=== PATIENT | male | born 1960 ===

== ENCOUNTER 2017-10-25 08:35 | Emergency (ER) | payer SELFPAY ==
[2017-10-25 08:54] VITALS: TEMP 97.8; O2SAT 98
[2017-10-25 09:21] VITALS: BMI 27.9
--- NOTE | 2017-10-25 09:39 | ED PDOC ---
Arrival/HPI - General Chief Complaint: Back Pain Time Seen by Provider: 10/25/17 09:10 Historian: Patient - History of Present Illness Narrative History of Present Illness (Text): 10/25/17 09:36 57yr old male presents today with cough and low back pain. pt states he has been having low back pain x 3 days and cough and cold symptoms x 1 day. pt states yesterday he started amoxicillin and cold and cough medication. pt states back pain started 3 days ago. pt states he was just sitting when the pain started and the pain is localized to both sides of the low back. pt states pain is worse with ambulation and when he moves. pt denies urinary symptoms. denies fever/chills. denies abdominal pain. pt denies cp or sob. pt c/o nasal congestion. pt denies numbness, weakness, tingling in the extremities. no other complaints. Time/Duration: Other (3 days of back pain) Symptom Onset: Gradual Symptom Course: Worsening Severity Level: 10 Activities at Onset: Rest Past Medical History - Provider Review Nursing Documentation Reviewed: Yes - Travel History Have you recently traveled outside [place] w/in the past 3 mons?: No - Infectious Disease Hx of Infectious Diseases: None - Tetanus Immunization Tetanus Immunization: Unknown - Psychiatric Hx Substance Use: No - Surgical History Other/Comment: hernia Family/Social History - Physician Review Nursing Documentation Reviewed: Yes Family/Social History: Unknown Family HX Smoking Status: Never Smoked Hx Alcohol Use: No Hx Substance Use: No Allergies/Home Meds Allergies/Adverse Reactions: Allergies No Known Allergies Allergy (Verified 10/25/17 09:22) Review of Systems - Review of Systems Constitutional: absent: Fatigue, Fevers ENT: Sinus Congestion. absent: Sore Throat Respiratory: Cough. absent: SOB Cardiovascular: absent: Chest Pain, Palpitations Gastrointestinal: absent: Abdominal Pain, Constipation, Diarrhea, Nausea, Vomiting Genitourinary Male: absent: Dysuria, Frequency, Hematuria Musculoskeletal: Back Pain. absent: Arthralgias, Neck Pain Neurological: absent: Headache, Dizziness Psychiatric: absent: Anxiety, Depression, Suicidal Ideation Physical Exam Vital Signs Reviewed: Yes Vital Signs Temp Pulse Resp BP Pulse Ox 10/25/17 11:45 68 18 126/69 98 10/25/17 10:57 70 18 128/76 98 10/25/17 08:52 97.8 F 74 17 126/88 98 Temperature: Afebrile Blood Pressure: Normal Pulse: Regular Respiratory Rate: Normal Appearance: Positive for: Well-Appearing, Non-Toxic, Comfortable Pain Distress: None Mental Status: Positive for: Alert and Oriented X 3 - Systems Exam Head: Present: Atraumatic Mouth: Present: Moist Mucous Membranes Neck: Present: Normal Range of Motion Respiratory/Chest: Present: Clear to Auscultation, Good Air Exchange. No: Respiratory Distress, Accessory Muscle Use Cardiovascular: Present: Regular Rate and Rhythm, Normal S1, S2. No: Murmurs Abdomen: No: Tenderness, Rebound, Guarding Back: Present: Normal Inspection, Paraspinal Tenderness (+ bilateral paraspinal tenderness). No: CVA Tenderness, Midline Tenderness Upper Extremity: Present: Normal Inspection, Normal ROM Lower Extremity: Present: Normal Inspection, Normal ROM. No: CALF TENDERNESS, Swelling Neurological: Present: GCS=15, Speech Normal Skin: Present: Warm, Dry, Normal Color. No: Rashes Psychiatric: Present: Alert, Oriented x 3 Medical Decision Making ED Course and Treatment: 10/25/17 09:41 57yr old male with cough,uri symptoms and back pain. cbc wnl cmp glucose 233; NOt fasting lipase wnl ua: wnl cxr; wnl ls spine; no fracture as read by the radiologist pt reassessment after toradol and flexeril: pt feeling better after medications. ambulating with steady gait. no distress. pt was seen and evaluated by dr. chavez. all results discussed with patient and Using video patient care nursing assistant cluster bore operator: Tuan [id number] I've advised the patient of his elevated blood sugar level and need for a fasting blood sugar level as well as a hemoglobin A1c. I've advised the patient had elevated blood pressure and need for follow-up with the primary care physician for both the blood sugar and elevated blood pressure. I advised me to return if symptoms worsen persist or if new concerning symptoms develop Patient verbalizes understanding of discharge instructions and need for immediate followup. all aspects of this case were discussed the attending of record. impression; back pain, elevated blood sugar. Motrin every 6 hours as needed for pain Flexeril one tablet every 8 hours as needed for muscle spasms: May cause drowsiness Follow up with the primary care physician regarding your elevated blood pressure and elevated blood sugar levels. Followup with the orthopedist/back specialist within the next 2 days Followup with primary care physician within the next 2 days Return if symptoms worsen persist or if new symptoms develop Reassessment Condition: Re-examined, Improved - Lab Interpretations Lab Results: 10/25/17 10:00 10/25/17 10:00 Lab Results 10/25/17 10:00: WBC 7.7, RBC 5.00, Hgb 15.1, Hct 43.8, MCV 87.6, MCH 30.2, MCHC 34.5, RDW 12.8, Plt Count 290, MPV 9.5, Gran % 54.0, Lymph % (Auto) 34.2, Blount % (Auto) 8.4 H, Eos % (Auto) 3.0, Baso % (Auto) 0.4, Gran # 4.14, Lymph # (Auto ) 2.6, Blount # (Auto) 0.6, Eos # (Auto) 0.2, Baso # (Auto) 0.03 10/25/17 10:00: Sodium 140, Potassium 4.6, Chloride 104, Carbon Dioxide 25, Anion Gap 16, BUN 21, Creatinine 0.9, Est GFR ( Amer) > 60, Est GFR (Non- Af Amer) > 60, Random Glucose 233 H, Calcium 9.8, Total Bilirubin 0.3, AST 33, ALT 37, Alkaline Phosphatase 100, Total Protein 8.0, Albumin 4.5, Globulin 3.5, Albumin/Globulin Ratio 1.3, Lipase 64 10/25/17 10:00: Urine Color Yellow, Urine Appearance Clear, Urine pH 6.5, Ur Specific [place] 1.020, Urine Protein Trace H, Urine Glucose (UA) >=1000, Urine Ketones Negative, Urine Blood Negative, Urine Nitrate Negative, Urine Bilirubin Negative, Urine Urobilinogen 0.2, Ur Leukocyte Esterase Negative, Urine RBC Negative, Urine WBC 0 - 2, Ur Epithelial Cells 0 - 2, Urine Bacteria Small - RAD Interpretation Radiology Orders: 10/25/17 09:31 CHEST TWO VIEWS (PA/LAT) [RAD] Stat LS SPINE WITH OBL > 18 YRS OLD [RAD] Stat - Medication Orders Current Medication Orders: Discontinued Medications Cyclobenzaprine HCl (Flexeril) 10 mg PO STAT STA Stop: 10/25/17 09:31 Last Admin: 10/25/17 09:48 Dose: 10 mg Ketorolac Tromethamine (Toradol) 30 mg IVP STAT STA Stop: 10/25/17 09:31 Last Admin: 10/25/17 09:48 Dose: 30 mg MAR Pain Assessment Document 10/25/17 09:48 SF (Rec: 10/25/17 09:49 SF [place] [id number]) Pain Reassessment Is this a pain reassessment? Yes Sleep Is patient sleeping during reassessment? No Presence of Pain Presence of Pain Yes Pain Scale Used Pain Scale Used Numeric Location Left, Right or Bilateral Bilateral Upper or Lower Lower Pain Location Body Site Back Description Description Constant IVP Administration Document 10/25/17 09:48 SF (Rec: 10/25/17 09:49 [place] [id number]) Charges for Administration # of IVP Administrations 1 Disposition/Present on Arrival - Present on Arrival Any Indicators Present on Arrival: No History of DVT/PE: No History of Uncontrolled Diabetes: No Urinary Catheter: No History of Decub. Ulcer: No History Surgical Site Infection Following: None - Disposition Have Diagnosis and Disposition been Completed?: Yes Diagnosis: Back pain, Elevated blood sugar level Disposition: HOME/ ROUTINE Disposition Time: 12:30 Patient Plan: Discharge Condition: GOOD Discharge Instructions (ExitCare): Low Back Pain in Adults Print Language: BRAZILIAN Additional Instructions: Motrin every 6 hours as needed for pain Flexeril one tablet every 8 hours as needed for muscle spasms: May cause drowsiness Follow up with the primary care physician regarding your elevated blood pressure and elevated blood sugar levels. Followup with the orthopedist/back specialist within the next 2 days Followup with primary care physician within the next 2 days Return if symptoms worsen persist or if new symptoms develop Prescriptions: Cyclobenzaprine [Cyclobenzaprine HCl] 10 mg PO Q8 #10 tab Ibuprofen [Motrin] 600 mg PO Q6H PRN #20 tab PRN Reason: pain/fever reduction Referrals: Zev Ogden MD [Staff Provider] - Follow up with primary Faustino Olivarez MD [Staff Provider] - Follow up with primary [facility] [place] [Outside] - Follow up with primary [facility] [Outside] - Follow up with primary Forms: WORK NOTE, [employer] (Guinean), [employer] ([place])
[2017-10-25 10:13] LABS: BASO # 0.03 K/mm3 (0.0-2.0); BASO % 0.4 % (0.0-3.0); EOS # 0.2 (0.0-0.7); GRAN # 4.14 (1.4-6.5); HEMOGLOBIN 15.1 g/dL (14.0-18.0); LYMPH # 2.6 (1.2-3.4); LYMPH % 34.2 % (22.0-35.0); MEAN CELL VOLUME 87.6 fl (80.0-105.0); MEAN CORPUSCULAR HEMOGLOBIN 30.2 pg (25.0-35.0); MEAN CORPUSCULAR HGB CONC 34.5 g/dl (31.0-37.0); MEAN PLATELET VOLUME 9.5 fl (7.0-11.0); MONO # 0.6 (0.1-0.6); MONO % 8.4 % (1.0-6.0); RED CELL DISTRIBUTION WIDTH 12.8 % (11.5-14.5); WHITE BLOOD COUNT 7.7 10^3/ul (4.5-11.0)
[2017-10-25 10:14] LABS: PH,URINE 6.5 (4.7-8.0); URINE BILIRUBIN NEGATIVE (NEGATIVE); URINE BLOOD NEGATIVE (NEGATIVE); URINE GLUCOSE (UA) >=1000 mg/dL (NEGATIVE); URINE LEUKOCYTE ESTERASE NEGATIVE Leu/uL (NEGATIVE); URINE PROTEIN TRACE mg/dL (<30 mg/dL); URINE UROBILINOGEN 0.2 E.U./dL (<1 E.U./dL)
[2017-10-25 10:23] LABS: URINE APPEARANCE CLEAR (CLEAR); URINE COLOR YELLOW (YELLOW)
[2017-10-25 10:25] LABS: ALB/GLOB RATIO 1.3 (1.1-1.8); ALBUMIN 4.5 g/dL (3.0-4.8); ALT/SGPT 37 U/L (7-56); AST/SGOT 33 U/L (17-59); BLOOD UREA NITROGEN 21 mg/dL (7-21); CALCIUM 9.8 mg/dL (8.4-10.5); GFR AFRICAN-AMERICAN > 60; GFR NON-AFRICAN AMERICAN > 60; LIPASE 64 U/L (23-300)
[2017-10-25 10:38] LABS: URINE BACTERIA SMALL (NEG); URINE EPITHELIAL CELLS 0 - 2 /hpf (0-5); URINE RBC NEGATIVE /hpf (0-2); URINE WBC 0 - 2 /hpf (0-6)
[2017-10-25 10:59] VITALS: RESP 18
--- NOTE | 2017-10-25 11:05 | RAD ---
HISTORY: cough COMPARISON: No prior. TECHNIQUE: Chest PA and lateral FINDINGS: LUNGS: No active pulmonary disease. PLEURA: No significant pleural effusion identified. No pneumothorax apparent. CARDIOVASCULAR: Normal. OSSEOUS STRUCTURES: No significant abnormalities. VISUALIZED UPPER ABDOMEN: Normal. OTHER FINDINGS: None. IMPRESSION: No active disease.
--- NOTE | 2017-10-25 11:06 | RAD ---
PROCEDURE: Radiographs of the Lumbar Spine. HISTORY: back pain COMPARISON: No prior. FINDINGS: BONES: Normal alignment. No listhesis. No fracture. DISC SPACES: Unremarkable. OTHER FINDINGS: None. IMPRESSION: Unremarkable radiographs of the lumbar spine.
[2017-10-25 12:55] VITALS: BP 124/65; PULSE 65
== END 2017-10-25 12:40 | disposition home or self-care (01) ==
LOC: ED 08:35
DX: M54.5 Low back pain (principal)
CPT/HCPCS: 71046; 72110; 80053; 81001; 83690; 85025; 96374; 99285; J1885